=== PATIENT | male | born 1950 | race Caucasian/White ===

== ENCOUNTER 2017-06-12 07:04 | Emergency (ER) | payer MEDICARE, OTHER ==
[~2017-06-12] VITALS: Ht 182.9 cm; Wt 117.1 kg
[~2017-06-12 07:04] MED LIST: AMIO100T4 PO; ATOR40TA78 PO; CARV12.52 PO; FENO160T PO; GLIM2TAB2 PO; LEVO100T5 PO; LISI-170 PO; METF10002 PO; TAMS0.4C2 PO
[2017-06-12] MEDS ORDERED: LIDOCAINE 1%, 20ML ONE (07:32)
[2017-06-12] MEDS ORDERED: PHENYLEPHRINE NASAL 1%, 15ML SPRAY ONE (07:32)
[2017-06-12] MEDS ORDERED: SILVER NITRATE STICK TP ONE (07:32)
[2017-06-12] MEDS ORDERED: ENALAPRILAT 1.25 MG/ML, 2ML ONE (08:48)
[2017-06-12] MEDS ORDERED: ENALAPRILAT 1.25 MG/ML, 2ML IV ONE (09:00)
[2017-06-12] MEDS ORDERED: SODIUM CHLORIDE FLUSH 10ML SYR IVF ONE (09:00)
[2017-06-12 09:22] VITALS: BP 140/70
== END 2017-06-12 09:54 | disposition home or self-care (01) ==
LOC: ED 09:40
DX: R04.0 Epistaxis (principal); E11.9 Type 2 diabetes mellitus without complications; E03.9 Hypothyroidism, unspecified; E78.5 Hyperlipidemia, unspecified; I10 Essential (primary) hypertension; Z87.891 Personal history of nicotine dependence
CPT/HCPCS: 30901; 96374